=== PATIENT | female | born 1965 | race African-American/Black ===

== ENCOUNTER → 2017-07-10 | Outpatient (CLI) | payer OTHER ==
--- NOTE | 2017-07-10 16:58 | WOMENS IMAGING REPORT ---
EXAM DESCRIPTION: BILAT SCREENING MAMMO W/CAD COMPLETED DATE/TIME: 07/10/2017 1:04 pm REASON FOR STUDY: ROUTINE SCREENING; Z12.31 Z12.31 ENCNTR SCREEN MAMMOGRAM FOR MALIGNANT NEOPLASM O F JESSICA COMPARISON: 2008 to 2013 TECHNIQUE: Standard craniocaudal and mediolateral oblique views of each breast recorded using MyDemocracy[employer] l acquisition. LIMITATIONS: None. FINDINGS: Findings present which are benign by mammographic criteria. No suspicious masses, calcifi cations or architectural distortion. Pertinent benign findings: Stable retroareolar smooth masses on the left. Read with the assistance of CAD. .[facility] - R2 Cenova Version 1.3 .[facility] Imaging - R2 Cenova Version 1.3 .[facility] Imaging - R2 Cenova Version 2.4 .[facility] - R2 Cenova Version 2.4 .[facility] - R2 Finish Sander Version 9.2 Benign mammographic findings may include one or more of the following: Smooth masses, popcorn/rim/co arse calcifications, asymmetries, post-procedure changes, and lesions with long-standing stability. IMPRESSION: BENIGN MAMMOGRAPHIC FINDINGS. BIRADS 2 BREAST DENSITY: b. There are scattered areas of fibroglandular density. BIRAD: 2 BENIGN FINDING(S) RECOMMENDATION: ROUTINE SCREENING COMMENT: The patient has been notified of the results by letter per SA requirements. Additional no tification policies are in place for contacting patient with suspicious or incomplete findings. Quality ID #[id number]: The [employer] recommends an annual screening mammogram for women aged 40 years or over. This facility utilizes a reminder system to ensure that all patients receive reminder letters, and/or direct phone calls for appointments. This includes reminders for routine scr eening mammograms, diagnostic mammograms, or other Breast Imaging Interventions when appropriate. Th is patient will be placed in the appropriate reminder system. The [employer] (ACR) has developed recommendations for screening MRI of the breast s in certain patient populations, to be used in conjunction with mammography. Breast MRI surveillanc e may be appropriate for women with more than 20% lifetime risk of developing breast cancer as deter mined by genetic testing, significant family history of the disease, or history of mantle radiation f or Hodgkins Disease. ACR Practice Guidelines 2008. TECHNICAL DOCUMENTATION: FINDING NUMBER: (1) ASSESSMENT: (1) JOB ID: [id number] [employer]- All Rights Reserved
== END ==
LOC: WI 11:25
PROVIDERS: ATTEND Family Medicine
DX: Z12.31 Encounter for screening mammogram for malignant neoplasm of breast (principal)
CPT/HCPCS: 77067; G0202

== ENCOUNTER → 2018-07-30 | Outpatient (CLI) | payer OTHER ==
--- NOTE | 2018-07-30 13:20 | RADIOLOGY REPORT (SQ) ---
EXAM DESCRIPTION: C SP 4 OR 5 VIEWS COMPLETED DATE/TIME: 07/30/2018 12:51 pm REASON FOR STUDY: NECK PAIN ON RT SIDE M54.2 CERVICALGIA COMPARISON: None. NUMBER OF VIEWS: Five views. TECHNIQUE: AP, lateral, obliques and odontoid radiographic images acquired of the cervical spine. LIMITATIONS: None. FINDINGS: MINERALIZATION: Normal. ALIGNMENT: Anatomic. VERTEBRAE: Vertebral bodies of normal height. DISCS: No significant osteophytes or sclerosis. Disc height maintained. FORAMINA: No osteophytes or foraminal narrowing. LATERAL AND POSTERIOR ELEMENTS: Facets, lateral masses and spinous processes without significant find ings. HARDWARE: None in the spine. SOFT TISSUES: No masses or calcifications. Lung apices clear. OTHER: No other significant finding. IMPRESSION: NO SIGNIFICANT RADIOGRAPHIC FINDING IN THE CERVICAL SPINE. TECHNICAL DOCUMENTATION: JOB ID: [id number] [employer]- All Rights Reserved Reading location - IP/workstation name: [facility]
== END ==
LOC: OD 12:21
PROVIDERS: ATTEND Family Medicine
DX: M54.2 Cervicalgia (principal)
CPT/HCPCS: 72050

== ENCOUNTER → 2018-08-06 | Outpatient (CLI) | payer OTHER ==
--- NOTE | 2018-08-06 09:22 | WOMENS IMAGING REPORT ---
EXAM DESCRIPTION: BILAT SCREENING MAMMO W/CAD COMPLETED DATE/TIME: 08/06/2018 8:50 am REASON FOR STUDY: BILATERAL SCREENING MAMMO /Z12.31Z12.31 ENCNTR SCREEN MAMMOGRAM FOR MALIGNANT MILLER PLASM OF JESSICA COMPARISON: 2011, 2013, 2016 TECHNIQUE: Standard craniocaudal and mediolateral oblique views of each breast recorded using digita l acquisition. LIMITATIONS: None. FINDINGS: RIGHT BREAST MASSES: Dominant mass 6 o'clock 5 cm from the nipple. CALCIFICATIONS: No new or suspicious calcifications. ARCHITECTURAL DISTORTION: None. DEVELOPING DENSITY: None. ASYMMETRY: None noted. OTHER: No other significant findings. LEFT BREAST MASSES: No suspicious masses. CALCIFICATIONS: No new or suspicious calcifications. ARCHITECTURAL DISTORTION: None. DEVELOPING DENSITY: None. ASYMMETRY: None noted. OTHER: No other significant findings. Read with the assistance of CAD. .[facility] - R2 Cenova Version 1.3 .[facility] Imaging - R2 Cenova Version 1.3 .[facility] - R2 Cenova Version 2.4 .[facility] [place]2 Cenova Version 2.4 .[facility] - R2 Data Base Design Analyst Version 9.2 IMPRESSION: Mass right breast. BREAST DENSITY: b. There are scattered areas of fibroglandular density. BIRAD: 0 Incomplete: Needs Additional Imaging Evaluation and/or prior Mammograms for Comparison. RECOMMENDATION: RECOMMENDED FOLLOW-UP: True lateral cone compression views and ultrasound of the rig ht breast. The patient will be contacted for additional imaging. COMMENT: The patient has been notified of the results by letter per SA requirements. Additional no tification policies are in place for contacting patient with suspicious or incomplete findings. Quality ID #225: The [employer] recommends an annual screening mammogram for women aged 40 years or over. This facility utilizes a reminder system to ensure that all patients receive reminder letters, and/or direct phone calls for appointments. This includes reminders for routine scr eening mammograms, diagnostic mammograms, or other Breast Imaging Interventions when appropriate. Th is patient will be placed in the appropriate reminder system. The [employer] (ACR) has developed recommendations for screening MRI of the breast s in certain patient populations, to be used in conjunction with mammography. Breast MRI surveillanc e may be appropriate for women with more than 20% lifetime risk of developing breast cancer as deter mined by genetic testing, significant family history of the disease, or history of mantle radiation f or Hodgkins Disease. ACR Practice Guidelines 2008. TECHNICAL DOCUMENTATION: FINDING NUMBER: (1) ASSESSMENT: (1) JOB ID: [id number] [employer]- All Rights Reserved Reading location - IP/workstation name: [facility]
== END ==
LOC: WI 08:29
PROVIDERS: ATTEND Family Medicine
DX: Z12.31 Encounter for screening mammogram for malignant neoplasm of breast (principal); N63.10 Unspecified lump in the right breast, unspecified quadrant
CPT/HCPCS: 77067

== ENCOUNTER → 2018-08-12 | Outpatient (CLI) | payer OTHER ==
--- NOTE | 2018-08-12 15:03 | WOMENS IMAGING REPORT ---
EXAM DESCRIPTION: RIGHT DIAGNOSTIC MAMMO W/CAD; U/S BREAST UNILAT LIMITED COMPLETED DATE/TIME: 08/12/2018 8:49 am; 08/12/2018 9:47 am REASON FOR STUDY: RIGHT DIAGNOSTIC MAMMO /N63.11 DOMINANT MASS AT 6 O'CLOCK; RT BREAST MASS N63.11 N 63.41 UNSPECIFIED LUMP IN RIGHT BREAST, SUBAREOLAR COMPARISON: Multiple previous TECHNIQUE: Cone compression craniocaudal and mediolateral oblique images of the breast recorded with digital acquisition. Right breast 90 mediolateral view. Right breast ultrasound was also performed. LIMITATIONS: None. FINDINGS: BREAST: Right MASSES: In the right breast deep 6 o'clock position about 5 cm from the nipple, a mammographic nodule is present with lobular indistinct borders, about 2.5 cm in greatest length. CALCIFICATIONS: No new or suspicious calcifications. ARCHITECTURAL DISTORTION: None. DEVELOPING DENSITY: None. ASYMMETRY: None noted. OTHER: No other significant findings. Read with the assistance of CAD. .[facility] - R2 Cenova Version 1.3 .[facility] Imaging - R2 Cenova Version 1.3 .[facility] Imaging - R2 Cenova Version 2.4 .[facility] - R2 Cenova Version 2.4 .[facility] - R2 Store Leader Version 9.2 Right breast ultrasound with right axilla ultrasound: In the right central breast 6 o'clock position, a hypoechoic mammographic mass is present with lobula r borders. There are few internal septations with minimal color flow. This is a complex cystic stru cture, suspicious for malignancy and biopsy is recommended (BI-RADS 5). This mass measures about 2.7 by 2.2 cm in size. Ultrasound-guided core biopsy with post biopsy clip placement and immediate foll ow-up two-view mammogram of this lesion is recommended. Right axilla ultrasound: Ultrasound of the right axilla was performed. An abnormal right axillary lymph node is present, 3 x 1.5 cm in size with a hypoechoic solid mass replacing half of the lymph node. This has minimal inter nal color flow. Ultrasound-guided core biopsy of this abnormal lymph node with postbiopsy immediate clip placement and follow-up two-view mammogram recommended. IMPRESSION: Worrisome mass in the right breast central 6 o'clock position for malignancy. Ultrasoun d-guided core biopsy with post biopsy clip placement and follow-up two-view mammogram recommended. Abnormal hypoechoic lymph node right axilla. Biopsy of this lymph node should also be performed, wit h post biopsy clip placement and follow-up two-view mammogram. Findings are suspicious for malignant axillary adenopathy. BREAST DENSITY: b. There are scattered areas of fibroglandular density. BIRAD: 5 Highly suggestive of malignancy. Appropriate action should be taken. RECOMMENDATION: RECOMMENDED FOLLOW UP: Right breast and abnormal right axilla lymph node ultrasound- guided core biopsy with post biopsy clip placement and immediate follow-up two-view mammogram SPECIFIC INTERVENTION/IMAGING/CONSULTATION RECOMMENDED:As above COMMUNICATION:These findings were not discussed with the patient at the time of service. Patient not ified by letter. COMMENT: The patient has been notified of the results by letter per SA requirements. Additional no tification policies are in place for contacting patient with suspicious or incomplete findings. Quality ID #225: The [employer] recommends an annual screening mammogram for women aged 40 years or over. This facility utilizes a reminder system to ensure that all patients receive reminder letters, and/or direct phone calls for appointments. This includes reminders for routine scr eening mammograms, diagnostic mammograms, or other Breast Imaging Interventions when appropriate. Th is patient will be placed in the appropriate reminder system. The [employer] (ACR) has developed recommendations for screening MRI of the breast s in certain patient populations, to be used in conjunction with mammography. Breast MRI surveillanc e may be appropriate for women with more than 20% lifetime risk of developing breast cancer as deter mined by genetic testing, significant family history of the disease, or history of mantle radiation f or Hodgkins Disease. ACR Practice Guidelines 2008. TECHNICAL DOCUMENTATION: FINDING NUMBER: (1) ASSESSMENT: (1) JOB ID: [id number] [employer]- All Rights Reserved Reading location - IP/workstation name: [facility]
--- NOTE | 2018-08-12 15:03 | WOMENS IMAGING REPORT ---
EXAM DESCRIPTION: RIGHT DIAGNOSTIC MAMMO W/CAD; U/S BREAST UNILAT LIMITED COMPLETED DATE/TIME: 08/12/2018 8:49 am; 08/12/2018 9:47 am REASON FOR STUDY: RIGHT DIAGNOSTIC MAMMO /N63.11 DOMINANT MASS AT 6 O'CLOCK; RT BREAST MASS N63.11 N 63.41 UNSPECIFIED LUMP IN RIGHT BREAST, SUBAREOLAR COMPARISON: Multiple previous TECHNIQUE: Cone compression craniocaudal and mediolateral oblique images of the breast recorded with digital acquisition. Right breast 90 mediolateral view. Right breast ultrasound was also performed. LIMITATIONS: None. FINDINGS: BREAST: Right MASSES: In the right breast deep 6 o'clock position about 5 cm from the nipple, a mammographic nodule is present with lobular indistinct borders, about 2.5 cm in greatest length. CALCIFICATIONS: No new or suspicious calcifications. ARCHITECTURAL DISTORTION: None. DEVELOPING DENSITY: None. ASYMMETRY: None noted. OTHER: No other significant findings. Read with the assistance of CAD. .[facility] - R2 Cenova Version 1.3 .[facility] Imaging - R2 Cenova Version 1.3 .[facility] - R2 Cenova Version 2.4 .[facility] - R2 Cenova Version 2.4 .[facility] - R2 Meat Hostess Version 9.2 Right breast ultrasound with right axilla ultrasound: In the right central breast 6 o'clock position, a hypoechoic mammographic mass is present with lobula r borders. There are few internal septations with minimal color flow. This is a complex cystic stru cture, suspicious for malignancy and biopsy is recommended (BI-RADS 5). This mass measures about 2.7 by 2.2 cm in size. Ultrasound-guided core biopsy with post biopsy clip placement and immediate foll ow-up two-view mammogram of this lesion is recommended. Right axilla ultrasound: Ultrasound of the right axilla was performed. An abnormal right axillary lymph node is present, 3 x 1.5 cm in size with a hypoechoic solid mass replacing half of the lymph node. This has minimal inter nal color flow. Ultrasound-guided core biopsy of this abnormal lymph node with postbiopsy immediate clip placement and follow-up two-view mammogram recommended. IMPRESSION: Worrisome mass in the right breast central 6 o'clock position for malignancy. Ultrasoun d-guided core biopsy with post biopsy clip placement and follow-up two-view mammogram recommended. Abnormal hypoechoic lymph node right axilla. Biopsy of this lymph node should also be performed, wit h post biopsy clip placement and follow-up two-view mammogram. Findings are suspicious for malignant axillary adenopathy. BREAST DENSITY: b. There are scattered areas of fibroglandular density. BIRAD: 5 Highly suggestive of malignancy. Appropriate action should be taken. RECOMMENDATION: RECOMMENDED FOLLOW UP: Right breast and abnormal right axilla lymph node ultrasound- guided core biopsy with post biopsy clip placement and immediate follow-up two-view mammogram SPECIFIC INTERVENTION/IMAGING/CONSULTATION RECOMMENDED:As above COMMUNICATION:These findings were not discussed with the patient at the time of service. Patient not ified by letter. COMMENT: The patient has been notified of the results by letter per SA requirements. Additional no tification policies are in place for contacting patient with suspicious or incomplete findings. Quality ID #225: The [employer] recommends an annual screening mammogram for women aged 40 years or over. This facility utilizes a reminder system to ensure that all patients receive reminder letters, and/or direct phone calls for appointments. This includes reminders for routine scr eening mammograms, diagnostic mammograms, or other Breast Imaging Interventions when appropriate. Th is patient will be placed in the appropriate reminder system. The [employer] (ACR) has developed recommendations for screening MRI of the breast s in certain patient populations, to be used in conjunction with mammography. Breast MRI surveillanc e may be appropriate for women with more than 20% lifetime risk of developing breast cancer as deter mined by genetic testing, significant family history of the disease, or history of mantle radiation f or Hodgkins Disease. ACR Practice Guidelines 2008. TECHNICAL DOCUMENTATION: FINDING NUMBER: (1) ASSESSMENT: (1) JOB ID: [id number] [employer]- All Rights Reserved Reading location - IP/workstation name: [facility]
== END ==
LOC: WI 08:20
PROVIDERS: ATTEND Family Medicine
DX: N63.11 Unspecified lump in the right breast, upper outer quadrant (principal)
CPT/HCPCS: 76642

== ENCOUNTER → 2018-08-30 | Day surgery (SDC) | payer OTHER ==
[~2018-08-30] MED LIST: LIDOCAINE 1% INJ-PF (10 MG/ML) 30 ML SDV ONE
--- NOTE | 2018-09-05 16:27 | WOMENS IMAGING REPORT ---
EXAM DESCRIPTION: U/S BREAST BX; U/S BREAST BX EACH ADDT'L; RIGHT DIG DX MAMMO NO CHG COMPLETED DATE/TIME: 08/30/2018 2:31 pm; 08/30/2018 2:17 pm REASON FOR STUDY: N63.10 BREAST MASS RIGHT; N63.10; N63.10 RIGHT S/P US BREAST BIOPSY FOR CLIP PLACE MENT N63.10 UNSPECIFIED LUMP IN THE RIGHT BREAST, UNSPECIFIED GONSALO COMPARISON: MULTIPLE MAMMOGRAMS SINCE 2008 Diagnostic right breast and axilla ultrasound 08/12/2018 TECHNIQUE: The procedure was discussed with the patient and the patient agreed to proceed. There is a solid right breast mass in the retroareolar region, as well as an enlarged right axillary lymph th emigdio areas were targeted. Right axillary lymph node biopsy: The patient was scanned and the enlarged hypoechoic lymph node in the right axilla was localized. Th is correlates with the area of concern on prior imaging studies. This area was targeted for ultrasoun d-guided core biopsy. After sterile skin prep and 2.5 mL local lidocaine 1% for skin and deep tissue anesthesia, a 14 gauge coaxial core biopsy needle was used to obtain several cores of tissue from the lesion. Under ultras ound guidance, a ribbon clip was placed in the areas sampled. There were no immediate post-procedure complications. Right breast retroareolar mass biopsy: The patient was scanned and the area of interest in the right central retroareolar region was localiz ed. This correlates with the area of concern on prior imaging studies. This area was targeted for ul trasound-guided core biopsy. After sterile skin prep and 3.0 mL local lidocaine 1% for skin and deep tissue anesthesia, a 14 gauge coaxial core biopsy needle was used to obtain several cores of tissue from the lesion. Under ultras ound guidance, a ribbon clip was placed in the areas sampled. There were no immediate post-procedure complications. MAMMOGRAM: Post-procedure two view mammogram was acquired in the digital mammogram suite. The clips w ere in the expected location. No significant hematoma. Pathology yields a diagnosis of atypical lymphoid proliferation, possible lymphoma Pathology is concordant. Malignant masses were expected at biopsy LIMITATIONS: None. FINDINGS: Ultrasound guided breast biopsy as described above. POST PROCEDURE MAMMOGRAMS FOR MARKER PLACEMENT: Yes IMPRESSION: ULTRASOUND-GUIDED CORE BIOPSY OF THE RIGHT BREAST AND RIGHT AXILLARY LYMPH NODE YIELDS A DIAGNOSIS OF ATYPICAL LYMPHOID PROLIFERATION, POSSIBLE LYMPHOMA. BI-RADS 6 Known biopsy-proven malignancy. Appropriate action should be taken. COMMENT: COMMUNICATION: BIOPSY RESULTS WERE DISCUSSED WITH THE PATIENT AND WITH DR. SANDY, 1600 [address] 09/05/2018. Patient medication list reviewed: Yes- Quality ID# [id number]:Eligible professional attests to documenting i n the medical record they obtained, updated, or reviewed the patient's current medications. TECHNICAL DOCUMENTATION: JOB ID: [id number] [employer]- All Rights Reserved Reading location - IP/workstation name: [email or web address]
== END ==
LOC: RAD 13:11
PROVIDERS: ATTEND Physician Assistant Medical
DX: N63.10 Unspecified lump in the right breast, unspecified quadrant (principal)
CPT/HCPCS: 88342 ×2; 88341 ×2; 88305 ×2; 19083; 19084; J3490

== ENCOUNTER 2018-11-08 09:39 | Day surgery (SDC) | payer OTHER ==
[2018-11-01 09:21] LABS: HEMOGLOBIN 13.6 g/dL (12.0-15.5); MEAN CORPUSCULAR HEMOGLOBIN 28.8 pg (27.0-33.4); MEAN CORPUSCULAR HGB CONC 33.9 g/dL (32.0-36.0); MEAN CORPUSCULAR VOLUME 85 fl (80-97); PLATELET COUNT 312 10^3/uL (150-450); RED BLOOD COUNT 4.72 10^6/uL (3.72-5.28); WHITE BLOOD COUNT 8.2 10^3/uL (4.0-10.5)
[2018-11-01 09:46] LABS: ANION GAP 8 (5-19); BLOOD UREA NITROGEN 20 mg/dL (7-20); CARBON DIOXIDE 34 mmol/L (22-30); CHLORIDE 99 mmol/L (98-107); GLUCOSE 102 mg/dL (75-110); POTASSIUM 4.2 mmol/L (3.6-5.0); SODIUM 140.8 mmol/L (137-145)
--- NOTE | 2018-11-01 09:50 | RADIOLOGY REPORT (SQ) ---
EXAM DESCRIPTION: CHEST PA/LATERAL COMPLETED DATE/TIME: 11/01/2018 9:42 am REASON FOR STUDY: PRE-OP COMPARISON: None. EXAM PARAMETERS: NUMBER OF VIEWS: two views TECHNIQUE: Digital Frontal and Lateral radiographic views of the chest acquired. RADIATION DOSE: NA LIMITATIONS: none FINDINGS: LUNGS AND PLEURA: No opacities, masses or pneumothorax. No pleural effusion. MEDIASTINUM AND HILAR STRUCTURES: No masses or contour abnormalities. HEART AND VASCULAR STRUCTURES: Heart normal size. No evidence for failure. BONES: No acute findings. HARDWARE: None in the chest. OTHER: No other significant finding. IMPRESSION: NO SIGNIFICANT RADIOGRAPHIC FINDING IN THE CHEST. TECHNICAL DOCUMENTATION: JOB ID: [id number] [employer]- All Rights Reserved Reading location - IP/workstation name: [email or web address]
--- NOTE | 2018-11-01 12:25 | EKG REPORT ---
SEVERITY:- BORDERLINE ECG - SINUS RHYTHM BORDERLINE T ABNORMALITIES, INFERIOR LEADS : Confirmed by: Kel Vega MD 01-Nov-2018 12:24:33
[~2018-11-08 09:39] MED LIST changes: +IBUPROFEN 800 MG in NORMAL SALINE 250 ML IV PRN; +LACTATED RINGERS 1000 ML IV PRN; +LIDOCAINE 0.5% INJ-PF (5 MG/ML) 50 ML SDV SUBCUT PRN; -LIDOCAINE 1% INJ-PF (10 MG/ML) 30 ML SDV ONE; +LIDOCAINE 4% TRANSPARENT DRESSING 5 GM KIT TP PRN; +VANCOMYCIN HCL 1,000 MG in DEXTROSE 5%-WATER 250 ML IV PRN
[2018-11-08] MEDS ORDERED: LIDOCAINE 4% TRANSPARENT DRESSING 5 GM KIT ONE (10:02)
[2018-11-08] MEDS ORDERED: PROPOFOL INJ 200 MG/20 ML VIAL IV ONE (12:43)
[2018-11-08] MEDS ORDERED: HYDROMORPHONE HCL INJ/PF 2 MG/ML AMPULE ONE (12:43)
[2018-11-08] MEDS ORDERED: MIDAZOLAM 2 MG/2 ML INJ ONE ×2 (12:43→13:38)
[2018-11-08] MEDS ORDERED: ACETAMINOPHEN 0 MG/0 ML RTUPB IV ONE (12:43)
[2018-11-08] MEDS ORDERED: FENTANYL CITRATE INJ/PF 100 MCG/2 ML AMPUL ONE ×2 (12:43→15:45)
--- NOTE | 2018-11-08 12:59 | RADIOLOGY REPORT (SQ) ---
EXAM DESCRIPTION: NM LYMPHATICS/LYMPH GLANDS COMPLETED DATE/TIME: 11/08/2018 12:45 pm REASON FOR STUDY: RT BREAST CANCER N63.10 UNSPECIFIED LUMP IN THE RIGHT BREAST, UNSPECIFIED GONSALO COMPARISON: None. RADIONUCLIDE AND DOSE: 560 microcuries TC-99m tilmanocept - Lymphoseek. The route of agent administration: Subcutaneous in the skin. TECHNIQUE: The skin of the right breast was prepped in sterile fashion. The radiopharmaceutical was administered in equally divided doses in the periareolar breast. LIMITATIONS: None. FINDINGS: Images demonstrate activity at the injection site. IMPRESSION: ADMINISTRATION OF RADIOPHARMACEUTICAL FOR SENTINEL LYMPH NODE EVALUATION. TECHNICAL DOCUMENTATION: JOB ID: [id number] [employer]- All Rights Reserved Reading location - IP/workstation name: [email or web address]
[2018-11-08] MEDS ORDERED: POTASSIUM CHLORIDE 10 MEQ CAPSULE.ER PO ONE (13:35)
[2018-11-08] MEDS ORDERED: SCOPOLAMINE HYDROBROMIDE 1.5 MG PATCH.TD72 ONE (13:37)
[2018-11-08] MEDS ORDERED: SUCCINYLCHOLINE CHLORIDE INJ 200 MG/10 ML VIAL ONE (15:02)
[2018-11-08] MEDS ORDERED: METHYLENE BLUE 50 MG/10 ML AMPULE ONE (15:19)
[2018-11-08] MEDS ORDERED: BUPIVACAINE HCL 0.25 % INJ/PF (2.5 MG/1 ML) 30 ML VIAL ONE (15:19)
[2018-11-08] MEDS ORDERED: DEXAMETHASONE SOD PHOSPHATE INJ 4 MG/1 ML VIAL ONE (15:45)
[2018-11-08] MEDS ORDERED: ONDANSETRON HCL INJ/PF 4 MG/2 ML SDV ONE (15:51)
[2018-11-08] MEDS ORDERED: DIPHENHYDRAMINE HCL 50 MG/ML VIAL IV PRN (16:35)
[2018-11-08] MEDS ORDERED: PROMETHAZINE HCL INJ 25 MG/1 ML VIAL IV PRN ×2 (16:35)
[2018-11-08] MEDS ORDERED: MEPERIDINE HCL/PF INJ 25 MG/1 ML DISP.SYRIN IV PRN (16:35)
[2018-11-08] MEDS ORDERED: FENTANYL CITRATE INJ/PF 100 MCG/2 ML AMPUL IV PRN ×3 (16:35)
[2018-11-08] MEDS ORDERED: ONDANSETRON HCL INJ/PF 4 MG/2 ML SDV IV PRN (16:35)
[2018-11-08] MEDS ORDERED: MORPHINE SULFATE 10 MG/ML INJ IV PRN (16:35)
[2018-11-08] MEDS: FENTANYL CITRATE INJ/PF 100 MCG/2 ML AMPUL ONE ×2 (17:51→18:00)
[2018-11-08] MEDS ORDERED: HYDROCODONE/ACETAMINOPHEN 10-325 MG TABLET PO PRN (18:19)
[2018-11-08 20:01] VITALS: BP 118/69
--- NOTE | 2018-11-10 16:03 | Discharge Summary ---
Discharge Summary (SDC) - Discharge Final Diagnosis: Right breast cancer Date of Surgery: 11/08/18 Discharge Date: 11/08/18 Condition: Stable Forms: ASU Anesthesia D/C Instruction, Discharge POC-Surgical Service Referrals: SURESH SANDY MD [Primary Care Provider] - JACKIE GREENWOOD MD [ACTIVE STAFF] - (Follow up with Dr Greenwood in 7 to 10 days. Call for time) Discharge Diet: As Tolerated Respiratory Treatments at Home: Deep Breathing/Coughing, Incentive Spirometer Discharge Activity: Balance Activity w/Rest, No Lifting/Push/Pulling Home Care Assistance: Provided by Family Report the Following to Your Physician Immediately: Shortness of Breath, Nausea, Vomiting, Increase in Pain, Fever over 101 Degrees, Unusual Bleeding, Redness, Swelling, Warmth, Drainage-Yellow, IV Site Infection Signs
--- NOTE | 2018-11-10 16:16 | Operative Report ---
Nonrecallable Operative Report DATE OF SURGERY: 11/08/18 PREOPERATIVE DIAGNOSIS: Right breast cancer POSTOPERATIVE DIAGNOSIS: Same as above OPERATION: 1. [place] lymph node biopsy of the right axilla. 2. Right breast lumpectomy. SURGEON: JACKIE MACHADO SOCIAL WORKER PALLIATIVE CARE: SCARLET VERGARA ANESTHESIA: GA TISSUE REMOVED OR ALTERED: 1. [place] lymph node #1. 2. [place] lymph node #2. 3. Additional lymph node. 4. Right breast lumpectomy COMPLICATIONS: None apparent ESTIMATED BLOOD LOSS: Minimal PROCEDURE: Drains/implants: None. Procedure in detail: After informed consent was obtained, the patient was brought into the operating room and laid in the supine position. The area of the right upper extremity, right axilla, and right breast were prepped and draped in normal sterile fashion. The gamma probe was used to identify a hot spot in the right axilla. An incision was then created over the hot spot obliquely. Dissection was carried down, through the subcutaneous tissue using sharp dissection, blunt dissection and judicious amounts of electrocautery. The axillary fascia was incised, and the axilla proper was entered. Blunt dissection was used to identify and free the sentinel lymph nodes. The first sentinel lymph node was removed from the patient, and an ex vivo count was performed. This count was 1189. Another hot spot was identified within the axilla. Another sentinel lymph node was identified and excised. An ex vivo count was performed on the second sentinel lymph node, measuring 1514. Another additional lymph node was found immediately adjacent to the sentinel lymph nodes, and was excised. It did not have a radioactive signature after removal. A background count was then performed, measuring 21. This confirmed that all sentinel lymph nodes were removed. Once this was completed, the axilla was closed in layers. The deep tissues were closed using 3-0 vicryl suture in simple interrupted fashion. The overlying skin was closed using 4-0 Vicryl Rapide suture in subcuticular fashion. Attention was then turned to the lumpectomy. A palpable mass was evident in the lower outer quadrant of the right breast. A curvilinear incision was created at the edge of the areola. Dissection was carried through the subcutaneous tissue using Bovie electrocautery. The mass was removed with margins. After removal, the specimen was marked. Anterior was marked with one short and one long stitch. Superior was marked with 2 short stitches. Lateral was marked with 2 long stitches. After adequate marking, the specimen was x-rayed. The mass was seen within the specimen, as was the biopsy clip. Once this was confirmed, attention was turned to closure. Hemostasis was achieved. The subcutaneous tissues were closed using 3-0 Vicryl suture in simple interrupted fashion. The overlying skin was closed using 4-0 Vicryl Rapide suture in subcuticular fashion. Dressings were placed, and the procedure was concluded. All sponge, instrument, and needle counts were correct x2. Condition: Stable. Scarlet Vergara PA-C was scrubbed and present the entirety of the procedure. She assisted with all portions of the procedure including opening of the skin, manipulation of the gamma probe, excision of the sentinel lymph nodes, excision of the breast mass, closure of the subcutaneous tissue, and closure of the skin.
--- NOTE | 2018-11-18 17:27 | RADIOLOGY REPORT (SQ) ---
EXAM DESCRIPTION: BREAST SPECIMEN COMPLETED DATE/TIME: 11/15/2018 9:53 am REASON FOR STUDY: RIGHT BREAST LUMPECTOMY/BX IN OR N63.10 UNSPECIFIED LUMP IN THE RIGHT BREAST, UNS PECIFIED GONSALO Z79.82 [employer] (CURRENT) USE OF ASPIRIN Z79.899 OTHER [facility] (CURRENT) DRUG THERA PY COMPARISON: Ultrasound-guided breast biopsy 08/30/2018 TECHNIQUE: Specimen radiograph from breast procedure performed in the operating room. LIMITATIONS: None. FINDINGS: Specimen radiograph from breast procedure performed in the operating room. Please see procedure note for details and final pathology. IMPRESSION: Specimen radiograph. TECHNICAL DOCUMENTATION: JOB ID: [id number] Reading location - IP/workstation name: [email or web address]
== END 2018-11-08 19:40 | disposition home or self-care (01) ==
LOC: OROUT 09:39
PROVIDERS: ATTEND Surgery
DX: C50.811 Malignant neoplasm of overlapping sites of right female breast (principal); C77.3 Secondary and unspecified malignant neoplasm of axilla and upper limb lymph nodes; Z79.82 Long term (current) use of aspirin; Z79.899 Other long term (current) drug therapy; I10 Essential (primary) hypertension
CPT/HCPCS: 19301; 38500; 93005; 36415 ×2; 84132; 85027; 81025; 80048; 88342 ×2; 88341 ×2; 88305 ×2; 88307 ×2; 71046; 78195; 93010; 76098; A9520; J2250; J1100; J3010; J3490; J0330; J2405; J7060; J7050; J2704; J3370; J1741; Q9968; 1610; J0131; J1170

== ENCOUNTER 2018-12-10 12:56 | Day surgery (SDC) | payer OTHER ==
[~2018-12-10 12:56] MED LIST changes: -LACTATED RINGERS 1000 ML IV PRN; -LIDOCAINE 0.5% INJ-PF (5 MG/ML) 50 ML SDV SUBCUT PRN; -LIDOCAINE 4% TRANSPARENT DRESSING 5 GM KIT TP PRN
[2018-12-10] MEDS ORDERED: BUPIVACAINE HCL 0.25 % INJ/PF (2.5 MG/1 ML) 30 ML VIAL ONE (13:20)
[2018-12-10] MEDS ORDERED: LIDOCAINE 1% INJ-PF (10 MG/ML) 30 ML SDV ONE (13:21)
[2018-12-10] MEDS ORDERED: LIDOCAINE 2% INJ-PF (100 MG/5 ML) SYRINGE ONE (15:54)
[2018-12-10] MEDS ORDERED: PROPOFOL INJ 200 MG/20 ML VIAL IV ONE (15:55)
[2018-12-10] MEDS ORDERED: MIDAZOLAM 2 MG/2 ML INJ ONE (15:55)
[2018-12-10] MEDS ORDERED: ONDANSETRON HCL INJ/PF 4 MG/2 ML SDV ONE (15:55)
[2018-12-10] MEDS ORDERED: FENTANYL CITRATE INJ/PF 100 MCG/2 ML AMPUL ONE (15:55)
[2018-12-10] MEDS ORDERED: POTASSIUM CHLORIDE 10 MEQ CAPSULE.ER PO ONE (16:21)
[2018-12-10] MEDS ORDERED: PROMETHAZINE HCL INJ 25 MG/1 ML VIAL IV PRN (16:45)
[2018-12-10] MEDS ORDERED: DIPHENHYDRAMINE HCL 50 MG/ML VIAL IV PRN (16:45)
[2018-12-10] MEDS ORDERED: ONDANSETRON HCL INJ/PF 4 MG/2 ML SDV IV PRN (16:45)
[2018-12-10] MEDS ORDERED: FENTANYL CITRATE INJ/PF 100 MCG/2 ML AMPUL IV PRN ×3 (16:45)
--- NOTE | 2018-12-10 17:44 | RADIOLOGY REPORT (SQ) ---
EXAM DESCRIPTION: CHEST SINGLE VIEW COMPLETED DATE/TIME: 12/10/2018 5:35 pm REASON FOR STUDY: post port a cath placement COMPARISON: 11/01/2018. FINDINGS: Single-view chest AP portable upright timed approximately 1733 hours. Left port via IJ approach, tip to the superior vena cava. No pneumothorax. Clear lungs. Normal cardiomediastinal silhouette. TECHNICAL DOCUMENTATION: JOB ID: [id number] Reading location - IP/workstation name: [email or web address]
--- NOTE | 2018-12-10 18:37 | RADIOLOGY REPORT (SQ) ---
EXAM DESCRIPTION: FLUORO/CV PLACEMENT COMPLETED DATE/TIME: 12/10/2018 5:49 pm REASON FOR STUDY: PORT-A-CATH PLACEMENT C50.911 MALIGNANT NEOPLASM OF UNSP SITE OF RIGHT FEMALE JESSICA A COMPARISON: None. FLUOROSCOPY TIME: 0.8 minutes 3 images saved to PACS. TECHNIQUE: Intra-operative images acquired during surgical procedure to evaluate progress. NUMBER OF IMAGES: 3 LIMITATIONS: None. FINDINGS: Coned images show patient to be undergoing port placement, presumably via left IJ approach . Please correlate with operative note. IMPRESSION: IMAGE(S) OBTAINED DURING PROCEDURE. COMMENT: Quality ID [id number]: Final reports for procedures using fluoroscopy that document radiation exp osure indices, or exposure time and number of fluorographic images (if radiation exposure indices are not available) Please consult full operative report of the attending physician for description of the procedure. TECHNICAL DOCUMENTATION: JOB ID: [id number] [employer]- All Rights Reserved Reading location - IP/workstation name: [email or web address]
[2018-12-10 18:38] VITALS: BP 109/64
--- NOTE | 2018-12-16 18:31 | Discharge Summary ---
Discharge Summary (SDC) - Discharge Final Diagnosis: Breast cancer Date of Surgery: 12/10/18 Discharge Date: 12/10/18 Condition: Stable Forms: ASU Anesthesia D/C Instruction, Discharge POC-Surgical Service Treatment or Instructions: OK to use mediport Referrals: SURESH SANDY MD [Primary Care Provider] - JACKIE GREENWOOD MD [ACTIVE STAFF] - (Follow up with Dr Greenwood in 6 months call for appointment.) Respiratory Treatments at Home: Deep Breathing/Coughing Discharge Activity: Activity As Tolerated, No Lifting/Push/Pulling Home Care Assistance: Provided by Family Report the Following to Your Physician Immediately: Shortness of Breath, Increase in Pain, Fever over 101 Degrees, Unusual Bleeding, Redness, Swelling, Warmth, Increased Soreness, Drainage-Yellow, IV Site Infection Signs
--- NOTE | 2018-12-16 18:36 | Operative Report ---
Nonrecallable Operative Report DATE OF SURGERY: 12/10/18 PREOPERATIVE DIAGNOSIS: Breast cancer POSTOPERATIVE DIAGNOSIS: Same OPERATION: 1. Ultrasound-guided central venous puncture. 2. Left internal jugular vein Mediport placement. SURGEON: JACKIE COX ANESTHESIA: LMAC TISSUE REMOVED OR ALTERED: None COMPLICATIONS: None apparent. ESTIMATED BLOOD LOSS: minimal PROCEDURE: Drains/implants: Left internal jugular vein Mediport placement. Procedure in detail: After informed consent was obtained, the patient was brought to the operating room and laid in the Trendelenburg position. The area of the left neck and chest were prepped and draped in a normal sterile fashion. Ultrasound was used to identify the left internal jugular vein. It was compressible with normal flow. Under direct ultrasonic guidance, the left internal jugular vein was accessed with the supplied needle. Dark venous, nonpulsatile blood was returned in the syringe. The wire was inserted into the vein. The wire was confirmed to be within the lumen of the vein using both fluoroscopy as well as ultrasound. Next, a separate incision was created in the left chest to accommodate the Mediport hub. The catheter was then tunneled from the Mediport hub site to the needle insertion site. Next, a dilator and breakaway sheath were inserted over the wire. This was done under direct fluoroscopic guidance. The wire and dilator were removed, leaving the dilator within the superior vena cava. The catheter was then inserted into the breakaway sheath. The sheath was cracked and pulled away, leaving the catheter within the SVC. Next the catheter was pulled back to an appropriate level and trimmed to length. The Mediport hub was attached to the catheter, and then buried into the pocket. The Mediport hub was sutured to the chest wall using 3- 0 Vicryl suture. The overlying subcutaneous tissue was then closed using 3-0 Vicryl suture. The skin was closed using 4-0 Vicryl Rapide suture in subcuticular fashion. The Mediport was then accessed and flushed with heparinized saline. The dressing was then created, and the procedure was concluded. All sponge, instrument, and needle counts were correct x2. Condition: Stable.
== END 2018-12-10 18:15 | disposition home or self-care (01) ==
LOC: OROUT 12:56
PROVIDERS: ATTEND Surgery
DX: C50.911 Malignant neoplasm of unspecified site of right female breast (principal); I10 Essential (primary) hypertension; Z88.0 Allergy status to penicillin; Z79.899 Other long term (current) drug therapy; Z79.82 Long term (current) use of aspirin
CPT/HCPCS: 36415; 84132; 71045; 77001; 36561; C1788; J2250; J3010; J3490; J2001; J2405; J7060; J7050; J2704; J3370; J1642; J1741; 532

== ENCOUNTER → 2018-12-18 | Outpatient (CLI) | payer OTHER ==
--- NOTE | 2018-12-18 13:52 | RADIOLOGY REPORT (SQ) ---
EXAM DESCRIPTION: NM MUGA REST COMPLETED DATE/TIME: 12/18/2018 1:06 pm REASON FOR STUDY: ENCOUNTER FOR ANTINEOPLASTIC CHEMOTHERAPY Z51.11 ENCOUNTER FOR ANTINEOPLASTIC LC MOTHERAPY COMPARISON: None. RADIONUCLIDE AND DOSE: 22.6 mCi technetium 99m labeled red blood cells The route of agent administration: Intravenous TECHNIQUE: Following administration of the radionuclide, gated images of the heart are obtained in t hree projections. Left ventricular functional analysis performed. LIMITATIONS: None. FINDINGS: LEFT VENTRICULAR FUNCTION: EJECTION FRACTION: 72%. END-DIASTOLIC VOLUME: 70 mL. END-SYSTOLIC VOLUME: 19 mL. WALL MOTION: No focal wall motion abnormalities. OTHER: No other significant finding. IMPRESSION: NORMAL CARDIAC MUGA STUDY. NORMAL LEFT VENTRICULAR FUNCTION WITH VALUES ABOVE. TECHNICAL DOCUMENTATION: JOB ID: [id number] 1914 [employer]- All Rights Reserved Reading location - IP/workstation name: [email or web address]
== END ==
LOC: RAD 10:37
PROVIDERS: ATTEND Internal Medicine Hematology & Oncology
DX: Z13.6 Encounter for screening for cardiovascular disorders (principal); Z08 Encounter for follow-up examination after completed treatment for malignant neoplasm
CPT/HCPCS: 78472; A9560; Q9969

== ENCOUNTER → 2019-12-03 | Outpatient (CLI) | payer OTHER ==
--- NOTE | 2019-12-03 12:31 | WOMENS IMAGING REPORT ---
EXAM DESCRIPTION: BONE DENSITY HIP/SPINE COMPLETED DATE/TIME: 12/03/2019 9:38 am REASON FOR STUDY: M81.0 M81.0 AGE-RELATED OSTEOPOROSIS W/O CURRENT PATHOLOGICAL FRAC COMPARISON: None. TECHNIQUE: Dual-Energy X-ray Absorptiometry (DEXA) of the AP Spine and Hip. LIMITATIONS: None. FINDINGS: LUMBAR SPINE: The bone mineral density (BMD) measured from L1-L4 in the AP projection correlates with a T-score of -0.5, which is normal as defined by the World Health Organization. BMD Change vs Baseline: N/A HIP: The bone mineral density (BMD) measured in the left hip correlates with a T-score of 0.0 in the femor al neck, which is normal as defined by the World Health Organization. BMD Change vs Baseline: N/A 10 year Fracture Risk Assessment: Major Osteoporotic Fracture: Not available. Hip Fracture: Not available. IMPRESSION: 1. LUMBAR SPINE WHO CLASSIFICATION: NORMAL. 2. HIP WHO CLASSIFICATION: NORMAL. OVERALL ASSESSMENT: WHO CLASSIFICATION: NORMAL. COMMENT: The World Health Organization defines low BMD as follows: T-score: Normal: Greater than -1.0 Osteopenia: Between -1.0 and -2.5 Osteoporosis: Less than -2.5 without fractures Established osteoporosis: Less than -2.5 with fractures In general, you may wish to consider: Diagnosis Treatment Follow-up DEXA Normal BMD Prevention 2-3 years Osteopenia Prevention/Therapy 1-2 years Osteoporosis Therapy Yearly TECHNICAL DOCUMENTATION: JOB ID: [id number] 2010 [employer]- All Rights Reserved Reading location - IP/workstation name: [email or web address]
== END ==
LOC: WI 09:03
PROVIDERS: ATTEND Nurse Practitioner Family
DX: M81.0 Age-related osteoporosis without current pathological fracture (principal)
CPT/HCPCS: 77080

== ENCOUNTER → 2020-03-10 | Outpatient (CLI) | payer OTHER ==
--- NOTE | 2020-03-10 15:02 | WOMENS IMAGING REPORT ---
EXAM DESCRIPTION: BILAT DIAGNOSTIC MAMMO W/CAD IMAGES COMPLETED DATE/TIME: 03/10/2020 1:52 pm REASON FOR STUDY: C50.411 BILAT DX C50.411 MALIG NEOPLM OF UPPER-OUTER QUADRANT OF RIGHT FEMALE COMPARISON: Multiple since 2009 EXAM PARAMETERS: Standard craniocaudal and mediolateral oblique views of each breast recorded using digital acquisition. Additional right breast 90 mediolateral view compression magnification views of the lumpectomy site right breast Read with the assistance of CAD: .[facility] - [employer] Research Fellow Version 9.2 LIMITATIONS: None. FINDINGS: RIGHT BREAST MASSES: No suspicious masses. CALCIFICATIONS: No new or suspicious calcifications. ARCHITECTURAL DISTORTION: None. ASYMMETRY: None noted. OTHER: Skin thickening post right breast radiation. Postsurgical changes in the deep central right b reast. LEFT BREAST MASSES: No suspicious masses. CALCIFICATIONS: No new or suspicious calcifications. ARCHITECTURAL DISTORTION: None. ASYMMETRY: None noted. OTHER: No other significant finding. IMPRESSION: No mammographic evidence for malignancy bilaterally BREAST DENSITY: b. There are scattered areas of fibroglandular density. BIRAD: ASSESSMENT: 2 Benign findings. RECOMMENDATION: RECOMMENDED FOLLOW UP: Continue yearly bilateral mammography in March 2021 SPECIFIC INTERVENTION/IMAGING/CONSULTATION RECOMMENDED:No additional intervention/ imaging/consultati on needed at this time. COMMUNICATION:Patient notified by letter COMMENT: The patient has been notified of the results by letter per MQSA requirements. Additional no tification policies are in place for contacting patient with suspicious or incomplete findings. Quality ID #225: The [employer] recommends an annual screening mammogram for women aged 40 years or over. This facility utilizes a reminder system to ensure that all patients receive reminder letters, and/or direct phone calls for appointments. This includes reminders for routine scr eening mammograms, diagnostic mammograms, or other Breast Imaging Interventions when appropriate. Th is patient will be placed in the appropriate reminder system. TECHNICAL DOCUMENTATION: FINDING NUMBER: (1) ASSESSMENT: (1) JOB ID: [id number] 2010 [employer]- All Rights Reserved Reading location - IP/workstation name: [email or web address]
== END ==
LOC: WI 13:10
PROVIDERS: ATTEND Internal Medicine Hematology & Oncology
DX: C50.411 Malignant neoplasm of upper-outer quadrant of right female breast (principal)
CPT/HCPCS: 77066